=== PATIENT | male | born 1955 | race Caucasian/White ===

== ENCOUNTER 2018-07-29 15:42 | Emergency (ER) | payer BC ==
[2018-07-29 15:55] VITALS: TEMP 98
[2018-07-29] MEDS ORDERED: CHLORHEXIDINE GLUCONATE 4 % 15 ML UD TOP ONE (16:29)
[2018-07-29] MEDS ORDERED: CYANOCOBALAMIN INJ 1,000 MCG/ML INJ IM ONE (16:39)
[2018-07-29] MEDS ORDERED: FOLIC ACID INJ 5 MG/ML VIAL IV ONE (16:40)
[2018-07-29] MEDS ORDERED: THIAMINE HCL INJ 100 MG/ML VIAL ONE (16:44)
--- NOTE | 2018-07-29 17:23 | CT ---
EXAM DESCRIPTION: Head CLINICAL HISTORY: syncope vs seizure COMPARISON: None Available TECHNIQUE: Contiguous axial CT images of the head were obtained. Coronal and sagittal reconstructions were created from the axial data. This exam was performed according to our departmental dose-optimization program, which includes automated exposure control, adjustment of the mA and/or kV according to patient size and/or use of iterative reconstruction technique. FINDINGS: There is no evidence of acute mass, mass effect, midline shift or hemorrhage. The ventricles and extra-axial CSF spaces are unremarkable. The brain parenchyma appears normal for the patient's age. No acute abnormalities of the bones is seen. IMPRESSION: No acute intracranial abnormality. Electronically signed by: Greg Chinchilla 07/29/2018 4:37 PM CDT
--- NOTE | 2018-07-29 17:23 | RAD ---
EXAM DESCRIPTION: Chest,1 View CLINICAL HISTORY: syncope vs seizure COMPARISON: None. FINDINGS: Cardiac silhouette is within normal limits. There is no focal parenchymal or pleural disease. Visualized osseous structures are within normal limits. IMPRESSION: No evidence of acute cardiopulmonary disease. Electronically signed by: Greg Chinchilla 07/29/2018 4:35 PM CDT
--- NOTE | 2018-07-29 17:48 | ED.PDOC ---
History of Present Illness - General Chief Complaint: General Stated Complaint: seizure Time Seen by Provider: 07/29/18 15:44 Source: patient Exam Limitations: no limitations - History of Present Illness Initial Comments: the patient is a 62-year-old male that had been fishing most of the day when he passed out after standing up while on the boat. He fell backwards and sustained a skin tear to his posterior right arm. Family reports that he was essentially unconscious for somewhere around 3 minutes. They did report some [id number] movement after he was down. No history of any syncopal events or seizure disorder. He does drink alcohol fairly regularly. There does not appear to be any real significant postictal period. No incontinence and no biting of the tongue. No residual focal neurological changes. He is alert pleasant and cooperative. He moves everything well. He reports that before he went out he felt very hot and flushed. He reports that he had been out in the sun the better part of the day and was hot and dry.no chest pain. No shortness of breath. No palpitations. No leg pain or swelling. Timing/Duration: other - 2-4 minutes Severity: severe Improving Factors: nothing Worsening Factors: nothing Associated Symptoms: malaise, syncope Allergies/Adverse Reactions: Allergies NO KNOWN ALLERGY Allergy (Verified 07/29/18 15:56) Home Medications: Ambulatory Orders Aspirin [Aspirin Adult Low Dose] 81 mg PO 07/29/18 Omeprazole 40 mg PO 07/29/18 Review of Systems - Review of Systems Constitutional: States: malaise EENTM: States: no symptoms reported Respiratory: States: no symptoms reported Cardiology: States: syncope. Denies: chest pain, edema, palpitations Gastrointestinal/Abdominal: States: no symptoms reported Genitourinary: States: no symptoms reported Musculoskeletal: States: no symptoms reported Skin: States: see HPI Neurological: States: no symptoms reported Endocrine: States: no symptoms reported All other Systems: No Change from Baseline Past Medical History (General) - Patient Medical History Hx Seizures: No Hx Stroke: No Hx Asthma: No Hx Hypertension: Yes Hx Diabetes: No Hx Cancer: No Surgical History: no surgical history - Vaccination History Hx Influenza Vaccination: No - Social History Hx Alcohol Use: Yes Hx Substance Use: No Family Medical History - Family History Father Living Status: Hx Cardiac Disease: Yes Physical Exam - Physical Exam General Appearance: Alert, Comfortable, No apparent distress Eye Exam: bilateral normal Ears, Nose, Throat: hearing grossly normal, normal ENT inspection, normal pharynx Neck: full range of motion, supple, normal inspection Respiratory: lungs clear, normal breath sounds, no respiratory distress, no accessory muscle use Cardiovascular/Chest: normal peripheral pulses, regular rate, rhythm, no edema Peripheral Pulses: radial,right: 2+, radial,left: 2+, dorsalis pedis,right: 2+, dorsalis pedis,left: 2+ Gastrointestinal/Abdominal: non tender, soft Rectal Exam: deferred Back Exam: normal inspection, no CVA tenderness Extremity: normal range of motion, non-tender, normal inspection - with the exception of the skin tear to the posterior aspect of the right, no pedal edema , normal capillary refill Neurologic: channeler outsole II-XII nml as tested, alert - forearm, normal mood/affect, oriented x 3 Skin Exam: normal color Comments: Vital Signs - 24 hr 07/29/18 07/29/18 07/29/18 15:45 15:46 15:47 Temperature Pulse Rate [ 90 93 H 106 H Left Brachial] Respiratory Rate Blood Pressure 143/84 152/88 126/66 [Left Arm] O2 Sat by Pulse Oximetry 07/29/18 07/29/18 07/29/18 15:49 16:42 17:00 Temperature 98.0 F Pulse Rate [ 101 H 83 80 Left Brachial] Respiratory 22 20 20 Rate Blood Pressure 153/77 161/68 [Left Arm] O2 Sat by Pulse 97 99 99 Oximetry Progress - Progress Progress: 07/29/18 17:50 the patient is 62-year-old male presenting after what was most likely a syncopal episode with seizure like activity subsequently versus an initial generalized seizure. He has no history of epilepsy. Symptoms prior and after are more consistent with syncope. He does need to increase his fluid intake in the form of water. He does have an elevation of his liver function tests and should reduce his alcohol intake significantly. Additionally he does have an elevated MCV and should start taking a vitamin B complex tablet daily. He has been monitored here for several hours. No significant arrhythmia or recurrence has occurred. Laboratory work is otherwise reassuring. He should plan on following up with his primary care doctor later this week. No driving until he is cleared by his primary care doctor. Outpatient carotid Dopplers would be reasonable. ER warnings are given for any worsening. 07/29/18 17:53the patient reports feeling fine at the time of discharge. He does have a elevated d-dimer however he does have several bruises from the fall. Symptoms are not consistent with a pulmonary embolus or aortic dissection. vital signs have remained stable and there has been no hypoxia or chest or abdominal pain. - Results/Orders Results/Orders: chest x-ray and head CT showed no acute pathology. Laboratory Tests 07/29/18 07/29/18 07/29/18 16:13 16:13 16:13 WBC 5.1 RBC 3.70 L Hgb 13.1 L Hct 38.2 L MCV 103.4 H MCH 35.4 H MCHC 34.3 RDW 14.2 Plt Count 137 MPV 7.7 Absolute Neuts (auto) 4.00 Absolute Lymphs (auto) 0.60 L Absolute Monos (auto) 0.40 Absolute Eos (auto) 0.10 Absolute Basos (auto) 0.00 Neutrophils % 78.4 H Lymphocytes % 11.2 L Monocytes % 8.2 Eosinophils % 1.6 Basophils % 0.6 PT 9.8 INR 0.98 PTT (SP) 24.7 D-Dimer, Quantitative 0.53 H* Sodium 135 Potassium 3.8 Chloride 99 L Carbon Dioxide 26 Anion Gap 13.8 BUN < 5 L Creatinine 0.48 L BUN/Creatinine Ratio 10.4 Random Glucose 134 H Serum Osmolality 269.0 L Calcium 9.1 Magnesium 2.2 Total Bilirubin 1.1 H AST 124 H ALT 105 H Alkaline Phosphatase 66 Creatine Kinase 93 CK-MB (CK-2) 2.1 CK-MB (CK-2) % Not Reportable Troponin I < 0.02 B-Natriuretic Peptide 41.4 Serum Total Protein 7.3 Albumin 3.9 Globulin 3.4 Albumin/Globulin Ratio 1.1 Urine Color Urine Appearance Urine pH Ur Specific [place] Urine Protein Urine Glucose (UA) Urine Ketones Urine Blood Urine Nitrite Urine Bilirubin Urine Urobilinogen Ur Leukocyte Esterase Urine RBC Urine WBC Ur Epithelial Cells Urine Bacteria 07/29/18 17:22 WBC RBC Hgb Hct MCV MCH MCHC RDW Plt Count MPV Absolute Neuts (auto) Absolute Lymphs (auto) Absolute Monos (auto) Absolute Eos (auto) Absolute Basos (auto) Neutrophils % Lymphocytes % Monocytes % Eosinophils % Basophils % PT INR PTT (SP) D-Dimer, Quantitative Sodium Potassium Chloride Carbon Dioxide Anion Gap BUN Creatinine BUN/Creatinine Ratio Random Glucose Serum Osmolality Calcium Magnesium Total Bilirubin AST ALT Alkaline Phosphatase Creatine Kinase CK-MB (CK-2) CK-MB (CK-2) % Troponin I B-Natriuretic Peptide Serum Total Protein Albumin Globulin Albumin/Globulin Ratio Urine Color Yellow Urine Appearance Clear Urine pH 6.0 Ur Specific [place] 1.025 Urine Protein 30 Urine Glucose (UA) Negative Urine Ketones 15 H Urine Blood Trace-intact H Urine Nitrite Negative Urine Bilirubin Negative Urine Urobilinogen 1.0 Ur Leukocyte Esterase Negative Urine RBC 0 Urine WBC 0 Ur Epithelial Cells 0-1 Urine Bacteria 0 - EKG/XRAY/CT CT Ordered: No Departure - Departure Clinical Impression: Convulsive syncope, Macrocytic anemia, Elevated liver function tests Disposition: Discharge to Home or Self Care Condition: Fair Departure Forms: ED Discharge - Pt. Copy, Patient Portal Self Enrollment Diet: regular diet - avoid alcohol and increase water intake Activity: increase activity as tolerated - no driving for at least the next week Home Medications: Ambulatory Orders Aspirin [Aspirin Adult Low Dose] 81 mg PO 07/29/18 Omeprazole 40 mg PO 07/29/18 Additional Instructions: the patient is 62-year-old male presenting after what was most likely a syncopal episode with seizure like activity subsequently versus an initial generalized seizure. He has no history of epilepsy. Symptoms prior and after are more consistent with syncope. He does need to increase his fluid intake in the form of water. He does have an elevation of his liver function tests and should reduce his alcohol intake significantly. Additionally he does have an elevated MCV and should start taking a vitamin B complex tablet daily. He has been monitored here for several hours. No significant arrhythmia or recurrence has occurred. Laboratory work is otherwise reassuring. He should plan on following up with his primary care doctor later this week. No driving until he is cleared by his primary care doctor. Outpatient carotid Dopplers would be reasonable. ER warnings are given for any worsening.
[2018-07-29 18:04] VITALS: BP 172/90; O2SAT 100
[2018-07-30] MEDS ORDERED: THIAMINE HCL INJ 100 MG/ML VIAL IV ONE (16:40)
== END 2018-07-29 18:03 | disposition home or self-care (01) ==
LOC: ER 15:42
DX: R55 Syncope and collapse (principal); R56.9 Unspecified convulsions; R79.89 Other specified abnormal findings of blood chemistry; D53.9 Nutritional anemia, unspecified; S41.101A Unspecified open wound of right upper arm, initial encounter; I10 Essential (primary) hypertension; Z79.82 Long term (current) use of aspirin; Z79.899 Other long term (current) drug therapy; W18.39XA Other fall on same level, initial encounter; Y92.814 Boat as the place of occurrence of the external cause
CPT/HCPCS: 36415; 70450; 71045; 80053; 81001; 82550; 82553; 83735; 83880; 84484; 85025; 85379; 85610; 85730; 93005; J3411; J3420